=== PATIENT | female | born 1985 | race Caucasian/White ===

== ENCOUNTER → 2017-09-10 12:42 | Outpatient (CLI) | payer OTHER, SELFPAY | PROVIDERS: PCP Family Medicine; Visit Provider Family Medicine | DX: R21 Rash and other nonspecific skin eruption (principal); T14.8XXA Other injury of unspecified body region, initial encounter | CPT/HCPCS: 87070; 87075; 87077; 87147; 87205 ==

== ENCOUNTER → 2018-12-04 15:17 | Outpatient (CLI) | payer OTHER, SELFPAY ==
--- NOTE | 2018-12-04 15:19 | DI.RAD.S_ITS ---
PROCEDURE: XR CERVICAL SPINE 2V OR 3V INDICATIONS: neck pain TECHNIQUE: 3 view(s) of the cervical spine were acquired. COMPARISON: None. FINDINGS: Bones: No fractures or dislocations to the T1 level. The lateral masses of C1 appear intact on the odontoid view. No suspicious bony lesions. Straightening of the normal lordotic curvature. Multilevel degenerative endplate sclerosis and spurring. Diffuse facet arthropathy. Chronic appearing ununited osteophyte at the anterior C5-C6 disc space. Mild to moderate disc space narrowing at C4-C5 and C5-C6. Minimal levocurvature Soft tissues: No prevertebral soft tissue swelling. IMPRESSION: Straightening of the normal lordotic curvature. Multilevel cervical spondylosis most pronounced at C4-C5 and C5-C6 as above. Minimal levocurvature. Dictated by: Kole Lorenz M.D. on 12/04/2018 at 16:31 Approved by: Kole Lorenz M.D. on 12/04/2018 at 16:32
== END ==
PROVIDERS: PCP Family Medicine; Visit Provider Family Medicine
DX: M54.2 Cervicalgia (principal); M47.812 Spondylosis without myelopathy or radiculopathy, cervical region
CPT/HCPCS: 72040

== ENCOUNTER → 2019-01-25 13:47 | Outpatient (CLI) | payer OTHER, SELFPAY ==
--- NOTE | 2019-01-25 13:49 | DI.MRI.S_ITS ---
PROCEDURE: MR CERVICAL SPINE WO CON INDICATIONS: neck pain, radicular arm pain TECHNIQUE: Noncontrast sagittal T1 spin echo and T2 fast spin echo, sagittal STIR, foraminal oblique sagittal T2 fast spin echo, and axial gradient echo or T2 fast spin echo through the cervical spine. COMPARISON: None. FINDINGS: Image quality: Excellent. Alignment and Curvature: There is normal bony alignment. Bone Marrow: Marrow demonstrates normal overall signal. Spinal Cord: Visualized spinal cord has normal size and signal. No cerebellar tonsillar herniation. Paraspinous Soft Tissues: No paravertebral masses. Prevertebral soft tissues are normal in thickness. C2-C3: Normal appearance. C3-C4: Normal appearance. C4-C5: Normal appearance to except for a slight degree of degenerative disc height reduction and desiccation and a slight posterior disc bulge that is present at and to the right of midline, effacing CSF from the anterior thecal sac but not distorting anterior cord-mild spinal stenosis without foraminal stenosis.. C5-C6: Moderate degenerative disc disease with disc height reduction, disc desiccation and a posterior broad-based transverse symmetric disc bulge that effaces CSF from the anterior thecal sac and very slightly flattens the anterior cord producing mild to moderate spinal stenosis at this level without foraminal stenosis visualized. C6-C7: The degenerative disc disease at this level is mild, without spinal or foraminal stenosis. There is slight disc height reduction and desiccation. C7-T1: Normal appearance. IMPRESSION: The degenerative disc disease at the cervical spine is mild overall, with a small degree of spinal stenosis present at and to the right of midline at C4-5 and transversely across the anterior spinal canal at C5-6. There is no disc herniation, and no focal neural foraminal nerve root impingement is found. Dictated by: Tigre Sol M.D. on 01/26/2019 at 11:09 Approved by: Tigre Sol M.D. on 01/26/2019 at 11:13
== END ==
PROVIDERS: PCP Family Medicine; Visit Provider Family Medicine
DX: M50.121 Cervical disc disorder at C4-C5 level with radiculopathy (principal); M48.02 Spinal stenosis, cervical region
CPT/HCPCS: 72141

== ENCOUNTER → 2019-09-24 13:01 | Outpatient (CLI) | payer OTHER, SELFPAY ==
--- NOTE | 2019-09-24 13:03 | DI.RAD.S_ITS ---
PROCEDURE: XR CHEST 2V INDICATIONS: chest pain TECHNIQUE: 2 views of the chest were acquired. COMPARISON: None. FINDINGS: Surgical changes and devices: None. Lungs and pleura: Lungs are clear. No pleural effusions or pneumothorax. Mediastinum: Mediastinal contours are normal. Heart size is normal. Bones and chest wall: No suspicious bony abnormalities. Soft tissues appear unremarkable. IMPRESSION: No acute cardiopulmonary process demonstrated radiographically. Dictated by: Sal Vivas M.D. on 09/24/2019 at 13:34 Approved by: Sal Vivas M.D. on 09/24/2019 at 13:34
== END ==
PROVIDERS: PCP Family Medicine; Referring Provider Physician Assistant; Visit Provider Physician Assistant
DX: R07.9 Chest pain, unspecified (principal)
CPT/HCPCS: 71046

== ENCOUNTER 2019-10-14 12:47 | Emergency (ER) | payer OTHER, SELFPAY ==
--- NOTE | 2019-10-14 12:28 | DI.RAD.S_ITS ---
PATIENT NAME: JEANNETTE RAMSEY : 1985 EXAM DATE: 10/14/2019 12:28 ORD. : ADRIANA TAPIA D.O. CC: ALMA VARELA MODALITY: CR PATIENT TYPE: ER CONTRAST MEDIA: STATION ID: [id number] FLUORO TIME: PROCEDURE: XR HAND LT MIN 3V INDICATIONS: rt 5th, lt 4th crush injury TECHNIQUE: 3 views of the hand(s) acquired. COMPARISON: None. FINDINGS: Bones: No fractures or dislocations. Carpal bones are normally aligned. No suspicious bony lesions. Soft tissues: No suspicious soft tissue calcifications. IMPRESSION: No trauma found. Dictated by: Tigre Sol M.D. on 10/14/2019 at 14:00 Approved by: Tigre Sol M.D. on 10/14/2019 at 14:01
--- NOTE | 2019-10-14 12:30 | DI.RAD.S_ITS ---
PATIENT NAME: JEANNETTE RAMSEY : 1985 EXAM DATE: 10/14/2019 12:30 ORD. : ADRIANA TAPIA D.O. CC: ALMA VARELA MODALITY: CR PATIENT TYPE: ER CONTRAST MEDIA: STATION ID: [id number] FLUORO TIME: PROCEDURE: XR FINGER RT MIN 2V INDICATIONS: rt 5th, lt 4th crush injury TECHNIQUE: AP hand, 2 views of the 4th and 5th finger(s) acquired. COMPARISON: None. FINDINGS: Bones: Acute oblique fracture through mid to distal shaft of 4th middle phalanx is seen with minimal lateral displacement at fracture site. No other fracture or dislocation is seen. No suspicious bony lesions. Soft tissues: No suspicious soft tissue calcifications. IMPRESSION: Acute minimally displaced 4th middle phalangeal shaft fracture as above. Dictated by: Billy Razo M.D. on 10/14/2019 at 14:01 Approved by: Billy Razo M.D. on 10/14/2019 at 14:08
[2019-10-14 13:15] VITALS: BP 134/84; PULSE 105; RESP 16; TEMP 36.7; O2SAT 100
--- NOTE | 2019-10-14 13:18 | DI.RAD.S_ITS ---
PROCEDURE: XR FINGER RT MIN 2V INDICATIONS: rt 5th, lt 4th crush injury TECHNIQUE: AP hand, 2 views of the 4th and 5th finger(s) acquired. COMPARISON: None. FINDINGS: Bones: Acute oblique fracture through mid to distal shaft of 4th middle phalanx is seen with minimal lateral displacement at fracture site. No other fracture or dislocation is seen. No suspicious bony lesions. Soft tissues: No suspicious soft tissue calcifications. IMPRESSION: Acute minimally displaced 4th middle phalangeal shaft fracture as above. Dictated by: Billy Razo M.D. on 10/14/2019 at 14:01 Approved by: Billy Razo M.D. on 10/14/2019 at 14:08
--- NOTE | 2019-10-14 13:18 | DI.RAD.S_ITS ---
PROCEDURE: XR HAND LT MIN 3V INDICATIONS: rt 5th, lt 4th crush injury TECHNIQUE: 3 views of the hand(s) acquired. COMPARISON: None. FINDINGS: Bones: No fractures or dislocations. Carpal bones are normally aligned. No suspicious bony lesions. Soft tissues: No suspicious soft tissue calcifications. IMPRESSION: No trauma found. Dictated by: Tigre Sol M.D. on 10/14/2019 at 14:00 Approved by: Tigre Sol M.D. on 10/14/2019 at 14:01
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
[2019-10-14] MEDS: OXYCODONE/ACETAMINOPHEN 5/325 TABLET 1 TAB PO (14:00)
--- NOTE | 2019-10-14 14:57 | PC.NURSE ---
I had a discussion with the patient. Pt visiably upset, crying and elevated voice, stating she does not feel cared for as she wants to be seen by an orthopedic surgeon today in the ED. She stated this injury occurred Saturday and was seen at [facility], when she called the orthopedic surgeon saturday they stated she could not be seen in their clinic as she had an outstanding balance. Our facility uses the same group. She feel as though her visit today has not resolved anything and she wants it taken care of today. Pt is getting a disc of her images at discharge and states she will find her own way. I have offered to help find an orthopedics who will see her and she has declined.
== END 2019-10-14 16:18 | disposition home or self-care (01) ==
PROVIDERS: Emergency Provider Student in an Organized Health Care Education/Training Program; PCP Family Medicine
DX: S62.625A Displaced fracture of middle phalanx of left ring finger, initial encounter for closed fracture (principal); X58.XXXA Exposure to other specified factors, initial encounter
CPT/HCPCS: 29130; 73130; 73140; 99283

== ENCOUNTER → 2023-02-28 09:04 | Outpatient (CLI) | payer OTHER, SELFPAY ==
[2023-02-28 10:17] LABS: Add Manual Diff / Slide Review NO; Basophils Absolute Auto 0 /uL (0-100); Basophils Percent Auto 0.6 % (0-2); Eosinophils Absolute Auto 300 /uL (0-450); Eosinophils Percent Auto 3.3 % (2-4); Hemoglobin 13.4 g/dL (12.0-16.0); Lymphocytes Absolute Auto 2400 /uL (1100-4500); Lymphocytes Percent Auto 31.1 % (25-40); Mean Corpuscular HGB Conc 33.4 % (30-36); Mean Corpuscular Hemoglobin 32.1 PG (26-34); Mean Corpuscular Volume 95.9 fL (80-100); Monocytes Absolute Auto 500 /uL (0-900); Neutrophils Absolute Auto 4600 /uL (1500-7000); Platelet Count 376 X10^3/uL (150-400); Red Blood Cell Count 4.17 X10^6/uL (4.0-5.2); Red Cell Distribution Width 12.6 % (11.6-14.8); White Blood Cell Count 7.8 X10^3/uL (4.5-11.0)
[2023-02-28 10:50] LABS: Alanine Aminotransferase 16 IU/L (<35); Albumin 4.5 g/dL (3.5-5.0); Albumin Globulin Ratio 1.6 (1.0-2.8); Alkaline Phosphatase 37 U/L (38-126); Aspartate Aminotransferase 21 IU/L (14-36); BUN Creatinine Ratio 15.5 (6-22); Bilirubin Total 0.6 mg/dL (0.2-1.3); Blood Urea Nitrogen 9 mg/dL (7-17); Calcium 9.6 mg/dL (8.4-10.2); Carbon Dioxide 27 mmol/L (22-32); Chloride 103 mmol/L (98-107); Cholesterol 186 mg/dL (140-199); Estimated Glomerular Filt Rate > 60 mL/min (>60); Globulin 2.9 g/dL (1.7-4.1); Glucose 101 mg/dL (70-100); HDL Cholesterol 91 mg/dL (40-60); HEMOLYSIS < 15 (0-50); LDL Cholesterol Calculated 86 mg/dL (<100); Potassium 4.4 mmol/L (3.4-5.1); Sodium 138 mmol/L (137-145); Total Protein 7.4 g/dL (6.3-8.2); Triglycerides 46 mg/dL (35-150)
[2023-02-28 11:14] LABS: TSH w/ Reflex to FT4 0.43 uIU/mL (0.47-4.68)
[2023-02-28 12:54] LABS: Free T4, Direct Thyroxine 1.01 ng/dL (0.78-2.19)
== END ==
PROVIDERS: PCP Family Medicine; Referring Provider Family Medicine; Visit Provider Family Medicine
DX: Z13.220 Encounter for screening for lipoid disorders (principal)
CPT/HCPCS: 36415; 80053; 80061; 84439; 84443; 85025